=== PATIENT | male | born 1990 | race Caucasian/White ===

== ENCOUNTER 2017-05-20 13:17 | Emergency (ER) | payer BC ==
[~2017-05-20] VITALS: Ht 193 cm; Wt 85.0 kg
[~2017-05-20 13:17] MED LIST: CEPH500C3 PO
[2017-05-20 13:19] VITALS: BP 118/91; PULSE 96; RESP 18; TEMP 98.3; O2SAT 100
[2017-05-20] MEDS ORDERED: BUPR1SUB SL (13:36)
[2017-05-20] MEDS ORDERED: SODIUM CHLORIDE 0.9% FLUSH 10 ML FLUSH IV FLUSH PRN (13:45)
--- NOTE | 2017-05-20 13:46 | PD ---
HPI Chief Complaint: Musculoskeletal Complaint Time Seen by Provider: 13:25 Travel History International Travel<30 days: No Contact w/Intl Traveler<30days: No Traveled to known affect area: No History of Present Illness HPI 26-year-old male presents to emergency department for evaluation of right rib/ abdominal pain status post fall 1 hour ago. 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 Patient has a superficial 5 cm laceration to right anterior/lateral rib border. He reports pain with inspiration, movement, and a palpation of the area. Reports the pain is constant, sharp, severity 6 out of 10. Patient also reports right hand pain. He denies head injury or loss of consciousness. He denies headache, chest pain, shortness of breath, nausea or vomiting, numbness/weakness/tingling of the extremities. Patient has a history of IV drug abuse. Currently on Suboxone PFSH Past Medical History Medical History: Denies Significant Hx Anxiety: Yes (PANIC DISORDER) Depression: Yes Cancer: No Cardiovascular Problems: No Diabetes: No Diminished Hearing: No Endocrine: No Gastrointestinal Disorders: Yes (IBS) Genitourinary: No Immune Disorder: No Musculoskeletal: No Neurologic: Yes Psychiatric: Yes Reproductive: No Respiratory: No Immunizations Current: Yes Seizures: Yes Tetanus Vaccination: < 5 Years Influenza Vaccination: No PNEUMOCCOCAL Vaccine (Year): 2 Past Surgical History Surgical History: No Previous Surgery Abdominal Surgery: No Cardiac Surgery: No Ear Surgery: No Endocrine Surgery: No Eye Surgery: No Genitourinary Surgery: No Gynecologic Surgery: No Oral Surgery: No Thoracic Surgery: No Social History Alcohol Use: Yes Tobacco Use: Yes (1 ppd) Substance Use: Yes (IVD - DILAUDID - 120 MG - DAILY -, Heroin, now on suboxone) Allergies-Medications (Allergen,Severity, Reaction): Coded Allergies: No Known Allergies (Verified , 05/20/17) Reported Meds & Prescriptions Reported Meds & Active Scripts Active Ibuprofen 800 Mg Tab 800 Mg PO Q8H PRN Reported Zubsolv (Buprenorphine-Naloxone) 5.7-1.4 Mg Subl 1 Tab SL TID Review of Systems Except as stated in HPI: all other systems reviewed are Neg Physical Exam Narrative GENERAL: Alert, well-appearing young male holding onto the right side of his abdomen SKIN: Focused skin assessment warm/dry. Superficial 5 cm laceration right anterior lateral trunk. HEAD: Atraumatic. Normocephalic. EYES: Pupils equal and round. No scleral icterus. No injection or drainage. ENT: No nasal bleeding or discharge. Mucous membranes pink and moist. NECK: Trachea midline. No JVD. No cervical midline tenderness. CARDIOVASCULAR: Regular rate and rhythm. No murmur appreciated. RESPIRATORY: No accessory muscle use. Clear to auscultation. Breath sounds equal bilaterally. No wheezing, rhonchi, rales. CHEST: Right anterior lateral rib pain. No crepitus. No ecchymosis. GASTROINTESTINAL: Abdomen soft, point tenderness right upper quadrant, nondistended. Hepatic and splenic margins not palpable. MUSCULOSKELETAL: No obvious deformities. No clubbing. No cyanosis. No edema. Point tenderness within the right hand at the base of the thumb. NEUROLOGICAL: Awake and alert. No obvious cranial nerve deficits. Motor grossly within normal limits. Normal speech. PSYCHIATRIC: Appropriate mood and affect; insight and judgment normal. Data Data Last Documented VS Vital Signs Date Time Temp Pulse Resp B/P Pulse Ox O2 Delivery O2 Flow Rate FiO2 05/20/17 14:00 20 05/20/17 13:19 98.3 96 118/91 100 Orders Chest, Pa & Lat (05/20/17 ) Iv Access Insert/Monitor (05/20/17 13:39) Sodium Chloride 0.9% Flush (Ns Flush) (05/20/17 13:45) Ct Abd/Pel W Iv Contrast(Rout) (05/20/17 ) Hand, Complete ([id number]) (05/20/17 ) Iohexol 350 Inj (Omnipaque 350 Inj) (05/20/17 14:19) MDM Medical Decision Making Medical Screen Exam Complete: Yes Emergency Medical Condition: Yes Differential Diagnosis blunt trauma to the abdomen, rib contusion versus fracture, right hand contusion versus fracture, laceration Narrative Course 26-year-old male presents emergency department with chief complaint of right side pain status post fall from a standing position. Patient has a superficial 5 CM laceration to the right anterior lateral border of the ribs. He has tenderness in the right upper quadrant. Patient has pain/tenderness within the right hand. CT scan, x-rays pending. Wound repaired CT scan of the abdomen pelvis: Negative trauma scan. No acute injuries. Chest x-ray: Normal study .No pneumothorax, no rib fracture X-ray right hand: No acute fracture or dislocation. All diagnostic studies discussed with patient and family. Patient will be treated for superficial laceration, abdominal contusion, rib contusion, right hand contusion. Patient agrees to follow up with his primary doctor. Return precautions discussed. They verbalize understanding. Procedures Procedure Narrative LACERATION LOCATION: Right abdomen LENGTH: 5 cm NUMBER OF STITCHES/SALUD: Dermabond REPAIR: The area of the laceration was prepped with Betadine and sterilely draped. The wound is very superficial no active bleeding. The wound was copiously irrigated and explored without evidence of foreign body, tendon injury or neurovascular injury. The wound was closed using [-Dermabond]. A sterile dressing was applied. The patient was advised to keep the dressing clean and dry. Patient tolerated the procedure well. Diagnosis Primary Impression: Laceration of abdomen Qualified Code: S31.119A - Laceration of abdomen, initial encounter Additional Impression: Contusion Qualified Code: S30.1XXA - Contusion of abdominal wall, initial encounter Referrals: Primary Care Physician Additional Instructions: Follow-up with her primary care doctor for recheck in 2 days. Take [id number] Motrin or Tylenol as needed for pain. Return to the emergency department if he developed new or worsening symptoms such as severe abdominal pain, nausea, vomiting, chest pain, shortness of breath. Scripts Ibuprofen 800 Mg [id number] Mg PO Q8H PRN (Pain/Inflammation) #30 TAB Prov:Ratna Cason 05/20/17 Disposition: 01 DISCHARGE HOME Condition: Stable Ratna Cason May 20, 2017 13:46
--- NOTE | 2017-05-20 14:04 | RADRPT ---
EXAM DATE/TIME: 05/20/2017 13:56 [facility] COMPARISON: No previous studies available for comparison. INDICATIONS : Right hand pain after falling MEDICAL HISTORY : None. SURGICAL HISTORY : None. ENCOUNTER: Initial ACUITY: 1 day PAIN SCORE: 9/10 LOCATION: Right medial hand FINDINGS: Three view examination of the right hand demonstrates no soft tissue swelling, dislocation, or fractu re. The carpal bones appear intact. The interphalangeal and metacarpophalangeal joints are intact. Bony mineralization is normal. CONCLUSION: Negative for fracture or dislocation. Follow up in 7-10 days is suggested if symptoms persist. Grupo Singh MD FACR on May 20, 2017 at 14:01 Board Certified Radiologist. This report was verified electronically.
[2017-05-20] MEDS ORDERED: IOHEXOL 350 MG/ML 10 ML VIAL (for RAD DIAG) IV ONE (14:19)
--- NOTE | 2017-05-20 14:27 | RADRPT ---
EXAM DATE/TIME: 05/20/2017 13:57 [facility] COMPARISON: No previous studies available for comparison. INDICATIONS : Right sided pain after falling. IV CONTRAST: 90 cc Omnipaque 350 (iohexol) IV ORAL CONTRAST: No oral contrast ingested. RADIATION DOSE: 7.62 CTDIvol (mGy) MEDICAL HISTORY : Seizures. IBS SURGICAL HISTORY : None. ENCOUNTER: Initial ACUITY: 1 day PAIN SCALE: 7/10 LOCATION: Right upper quadrant ABDOMEN TECHNIQUE: Volumetric scanning of the abdomen and pelvis was performed. Using automated exposure control and ad justment of the mA and/or kV according to patient size, radiation dose was kept as low as reasonably achievable to obtain optimal diagnostic quality images. DICOM format image data is available electro nically for review and comparison. FINDINGS: LOWER LUNGS: The visualized lower lungs are clear. LIVER: Homogeneous density without lesion. There is no dilation of the biliary tree. No calcified gallston es. SPLEEN: Normal size without lesion. PANCREAS: Within normal limits. KIDNEYS: Normal in size and shape. There is no mass, stone or hydronephrosis. ADRENAL GLANDS: Within normal limits. VASCULAR: There is no aortic aneurysm. BOWEL/MESENTERY: The stomach, small bowel, and colon demonstrate no acute abnormality. There is no free intraperitone al air or fluid. ABDOMINAL WALL: Within normal limits. RETROPERITONEUM: There is no lymphadenopathy. BLADDER: No wall thickening or mass. REPRODUCTIVE: Within normal limits. INGUINAL: There is no lymphadenopathy or hernia. MUSCULOSKELETAL: Within normal limits for patient age. CONCLUSION: Negative for an acute traumatic injury.. Grupo Singh MD FACR on May 20, 2017 at 14:23 Board Certified Radiologist. This report was verified electronically.
--- NOTE | 2017-05-20 14:30 | RADRPT ---
EXAM DATE/TIME: 05/20/2017 13:48 [facility] COMPARISON: CT ABDOMEN & PELVIS W CONTRAST, May 20, 2017, 13:57. INDICATIONS : Right side rib pain after falling MEDICAL HISTORY : None. SURGICAL HISTORY : None. ENCOUNTER: Initial ACUITY: 1 day PAIN SCORE: 10/10 LOCATION: Right anterior lower ribs FINDINGS: PA and lateral views of the chest demonstrate a normal-sized cardiac silhouette. There is no effusion , consolidation, or pneumothorax. The bones and soft tissues demonstrate no acute abnormality. No rib fracture is visualized. CONCLUSION: No acute cardiopulmonary abnormality is identified. No rib fracture is seen. Agustin Sanchez MD on May 20, 2017 at 14:26 Board Certified Radiologist. This report was verified electronically.
[2017-05-20] MEDS ORDERED: IBUP800T23 PO (14:54)
== END 2017-05-20 15:23 | disposition home or self-care (01) ==
LOC: PHEFT 13:17
DX: S31.119A Laceration without foreign body of abdominal wall, unspecified quadrant without penetration into peritoneal cavity, initial encounter (principal); S30.1XXA Contusion of abdominal wall, initial encounter; W18.00XA Striking against unspecified object with subsequent fall, initial encounter
CPT/HCPCS: 12002; 71020; 73130; 74177; 99284; Q9967

== ENCOUNTER 2017-07-20 00:28 | Emergency (ER) | payer BC, OTHER ==
[~2017-07-20 00:28] MED LIST changes: +BUPR1SUB SL; -CEPH500C3 PO; +IBUP800T23 PO
[2017-07-20 00:58] VITALS: BP 136/87; PULSE 78; RESP 16; TEMP 98.7; O2SAT 99
--- NOTE | 2017-07-20 02:24 | PD ---
HPI Chief Complaint: Psychiatric Symptoms Time Seen by Provider: 02:13 Travel History International Travel<30 days: No Contact w/Intl Traveler<30days: No Traveled to known affect area: No History of Present Illness HPI 27 years old male was [place] acted and brought in for evaluation. Patient reportedly was making suicidal threats to his mother. Patient states that he did that to get his mother's attention and money. Patient states that he doesn' t mean to do any harm to himself. Patient denies any alcohol or drug abuse. Patient denies any medical problem. Patient denies any headache. Patient denies any chest pain or shortness of breath. Patient denies abdominal pain. Patient denies any injury. PFSH Past Medical History Anxiety: Yes (PANIC DISORDER) Depression: Yes Cancer: No Cardiovascular Problems: No Diabetes: No Diminished Hearing: No Endocrine: No Gastrointestinal Disorders: Yes (IBS) Genitourinary: No Immune Disorder: No Musculoskeletal: No Neurologic: Yes Psychiatric: Yes Reproductive: No Respiratory: No Immunizations Current: Yes Seizures: Yes PNEUMOCCOCAL Vaccine (Year): 2 Past Surgical History Abdominal Surgery: No Cardiac Surgery: No Ear Surgery: No Endocrine Surgery: No Eye Surgery: No Genitourinary Surgery: No Gynecologic Surgery: No Oral Surgery: No Thoracic Surgery: No Social History Alcohol Use: Yes Tobacco Use: Yes (1 ppd) Substance Use: Yes (IVD DILAUDID 16 MG DAILY ) Allergies-Medications (Allergen,Severity, Reaction): Coded Allergies: No Known Allergies (Verified , 07/20/17) Reported Meds & Prescriptions Reported Meds & Active Scripts Active Ibuprofen 800 Mg Tab 800 Mg PO Q8H PRN Reported Zubsolv (Buprenorphine-Naloxone) 5.7-1.4 Mg Subl 1 Tab SL TID Review of Systems General / Constitutional: No: Fever Eyes: No: Visual changes HENT: No: Headaches Cardiovascular: No: Chest Pain or Discomfort Respiratory: No: Shortness of Breath Gastrointestinal: No: Abdominal Pain Genitourinary: No: Dysuria Musculoskeletal: No: Pain Skin: No Rash Neurologic: No: Weakness Psychiatric: No: Depression Endocrine: No: Polydipsia Hematologic/Lymphatic: No: Easy Bruising Physical Exam Narrative GENERAL: Well-nourished, well-developed patient. SKIN: Focused skin assessment warm/dry. HEAD: Normocephalic. EYES: No scleral icterus. No injection or drainage. NECK: Supple, trachea midline. No JVD or lymphadenopathy. CARDIOVASCULAR: Regular rate and rhythm without murmurs, gallops, or rubs. RESPIRATORY: Breath sounds equal bilaterally. No accessory muscle use. GASTROINTESTINAL: Abdomen soft, non-tender, nondistended. MUSCULOSKELETAL: No cyanosis, or edema. BACK: Nontender without obvious deformity. No CVA tenderness. Neurologic exam normal. Data Data Last Documented VS Vital Signs Date Time Temp Pulse Resp B/P (MAP) Pulse Ox O2 Delivery O2 Flow Rate FiO2 07/20/17 00:58 98.7 78 16 136/87 (103) 99 Orders Orders Complete Blood Count With Diff (07/20/17 02:17) Comprehensive Metabolic Panel (07/20/17 02:17) Psych Screen (07/20/17 02:17) Drug Screen, Random Urine (07/20/17 02:17) MDM Medical Decision Making Medical Screen Exam Complete: Yes Emergency Medical Condition: Yes Differential Diagnosis Differential diagnosis including adjustment disorder, depression, suicidal. Narrative Course 27 years old male was [place] acted for suicidal threat. Patient is medically cleared for psychiatric evaluation and disposition. Harvey Romano MD Jul 20, 2017 02:24
[2017-07-20 02:48] LABS: BASOPHIL # 0.1 TH/MM3 (0-0.2); BASOPHIL % 0.7 % (0.0-2.0); EOSINOPHIL # 0.7 TH/MM3 (0-0.4); EOSINOPHIL % 7.5 % (0.0-4.0); HEMATOCRIT 48.4 % (39.0-51.0); HEMO FLAGS DIFF FINAL; LYMPH % 26.4 % (9.0-44.0); LYMPHOCYTE # 2.4 TH/MM3 (1.0-4.8); MEAN CELL VOLUME 89.8 FL (80.0-100.0); MEAN CORPUSCULAR HEMOGLOBIN 29.3 PG (27.0-34.0); MEAN CORPUSCULAR HGB CONC 32.7 % (32.0-36.0); MONO % 10.1 % (0.0-8.0); NEUT % 55.3 % (16.0-70.0); PLATELET COUNT 267 TH/MM3 (150-450); WHITE BLOOD COUNT 9.1 TH/MM3 (4.0-11.0)
[2017-07-20 03:01] LABS: ALT (GPT) 19 U/L (12-78); ANION GAP 11 MEQ/L (5-15); AST (GOT) 20 U/L (15-37); BICARBONATE 24.8 MEQ/L (21.0-32.0); BLOOD UREA NITROGEN 9 MG/DL (7-18); CHLORIDE 105 MEQ/L (98-107); GLOMERULAR FILTRATION RATE 84 ML/MIN (>89); POTASSIUM 3.7 MEQ/L (3.5-5.1); SODIUM (NA) 141 MEQ/L (136-145)
[2017-07-20 03:03] LABS: ALKALINE PHOSPHATASE 91 U/L (45-117); TOTAL BILIRUBIN ADULT 0.4 MG/DL (0.2-1.0)
[2017-07-20 06:45] VITALS: BP 110/73; PULSE 60; RESP 18; O2SAT 99
[2017-07-20 13:29] VITALS: BP 127/71; PULSE 66; RESP 18; O2SAT 99
--- NOTE | 2017-07-20 14:29 | PD ---
History of Present Illness Chief Complaint: Psychiatric Symptoms Time Seen by Provider: 13:30 Travel History International Travel<30 Days: No Contact w/Intl Traveler<30days: No Known affected area: No Legal Status Legal Status: [place] Act History of Present Illness: 27-year-old male [place] acted for suicidal threats. Patient admits to a multiyear history of dialogue it abuse. He also admits to telling his mother that he was suicidal in order to get money from her. He is currently calm, pleasant, smiling and cooperative. He has only a few weeks left under his parent's insurance to get treatment for his drug abuse. He is stating that he wants this treatment and he knows he must act quickly. He is denying any suicidal or homicidal ideation, plan or intent at this time. He has no psychotic symptoms and his cognition are intact. He is verbally carina for safety. PFSH Past Medical History Medical History: Denies Significant Hx Anxiety: Yes (PANIC DISORDER) Depression: Yes Cancer: No Cardiovascular Problems: No Diabetes: No Diminished Hearing: No Endocrine: No Gastrointestinal Disorders: Yes (IBS) Genitourinary: No Immune Disorder: No Musculoskeletal: No Neurologic: Yes Psychiatric: Yes Reproductive: No Respiratory: No Immunizations Current: Yes Seizures: Yes PNEUMOCCOCAL Vaccine (Year): 2 Past Surgical History Abdominal Surgery: No Cardiac Surgery: No Ear Surgery: No Endocrine Surgery: No Eye Surgery: No Genitourinary Surgery: No Gynecologic Surgery: No Oral Surgery: No Thoracic Surgery: No Psychiatric History Psychiatric History Hx Psychiatric Treatment: [facility] [place] nov 13, 2012 History of Inpatient Treatment: Yes Social History Hx Alcohol Use: Yes Hx Tobacco Use: Yes (1 ppd) Hx Substance Use: Yes (IVD DILAUDID 16 MG DAILY ) Substance Use Type: Synth Opiates-Pain Pills Other Substances Used: i.v dilauded Hx of Substance Use Treatment: No Allergies-Medications (Allergen,Severity, Reaction): Coded Allergies: No Known Allergies (Verified , 07/20/17) Reported Meds & Prescriptions Reported Meds & Active Scripts Active Ibuprofen 800 Mg Tab 800 Mg PO Q8H PRN Reported Zubsolv (Buprenorphine-Naloxone) 5.7-1.4 Mg Subl 1 Tab SL TID Review of Systems Except as stated in HPI: all other systems reviewed are Neg Exam Alert: Yes [place]: Person, Place, Date, Situation Mood: Calm Affect: Appropriate, Euthymic Speech: Clear, Logical Eye Contact: Normal Memory Intact: Immediate, Recent, Remote Insight/Judgement Adequate MDM Medical Decision Making Medical Record Reviewed: Yes Assessment/Plan Patient was interviewed, chart reviewed and case discussed with nurse. Patient is verbally carina for safety and acknowledges his predominant problem is opiate abuse. Patient is willing to obtain treatment for this area this physician does not feel the patient qualifies for [place] act or involuntary psychiatric hospitalization. He is therefore being referred for substance abuse treatment and rehabilitation. Orders Orders Complete Blood Count With Diff (07/20/17 02:17) Comprehensive Metabolic Panel (07/20/17 02:17) Psych Screen (07/20/17 02:17) Drug Screen, Random Urine (07/20/17 02:17) Diet Regular Basic (07/20/17 Lunch) Results Vital Signs Date Time Temp Pulse Resp B/P (MAP) Pulse Ox O2 Delivery O2 Flow Rate FiO2 07/20/17 13:29 66 18 127/71 (89) 99 Room Air 07/20/17 06:45 60 18 110/73 (85) 99 Room Air 07/20/17 00:58 98.7 78 16 136/87 (103) 99 Laboratory Tests Test 07/20/17 02:30 White Blood Count 9.1 Red Blood Count 5.40 Hemoglobin 15.8 Hematocrit 48.4 Mean Corpuscular Volume 89.8 Mean Corpuscular Hemoglobin 29.3 Mean Corpuscular Hemoglobin Concent 32.7 Red Cell Distribution Width 14.0 Platelet Count 267 Mean Platelet Volume 7.5 Neutrophils (%) (Auto) 55.3 Lymphocytes (%) (Auto) 26.4 Monocytes (%) (Auto) 10.1 Eosinophils (%) (Auto) 7.5 Basophils (%) (Auto) 0.7 Neutrophils # (Auto) 5.0 Lymphocytes # (Auto) 2.4 Monocytes # (Auto) 0.9 Eosinophils # (Auto) 0.7 Basophils # (Auto) 0.1 CBC Comment DIFF FINAL Differential Comment Blood Urea Nitrogen 9 Creatinine 1.06 Random Glucose 72 Total Protein 8.6 Albumin 4.4 Calcium Level 9.2 Alkaline Phosphatase 91 Aspartate Amino Transf (AST/SGOT) 20 Alanine Aminotransferase (ALT/SGPT) 19 Total Bilirubin 0.4 Sodium Level 141 Potassium Level 3.7 Chloride Level 105 Carbon Dioxide Level 24.8 Anion Gap 11 Estimat Glomerular Filtration Rate 84 Urine Opiates Screen POS Urine Barbiturates Screen NEG Urine Amphetamines Screen NEG Urine Benzodiazepines Screen NEG Urine Cocaine Screen POS Urine Cannabinoids Screen NEG Diagnosis Primary Impression: Adjustment disorder with mixed disturbance of emotions and conduct Additional Impression: Opiate abuse, episodic Problem Qualifiers Eddie Reyes MD Jul 20, 2017 14:29
--- NOTE | 2017-07-20 14:52 | PD ---
Data Data Last Documented VS Vital Signs Date Time Temp Pulse Resp B/P (MAP) Pulse Ox O2 Delivery O2 Flow Rate FiO2 07/20/17 14:34 07/20/17 13:29 66 18 99 Room Air 07/20/17 00:58 98.7 Orders Orders Complete Blood Count With Diff (07/20/17 02:17) Comprehensive Metabolic Panel (07/20/17 02:17) Psych Screen (07/20/17 02:17) Drug Screen, Random Urine (07/20/17 02:17) Diet Regular Basic (07/20/17 Lunch) Labs Laboratory Tests Test 07/20/17 02:30 White Blood Count 9.1 TH/MM3 Red Blood Count 5.40 MIL/MM3 Hemoglobin 15.8 GM/DL Hematocrit 48.4 % Mean Corpuscular Volume 89.8 FL Mean Corpuscular Hemoglobin 29.3 PG Mean Corpuscular Hemoglobin Concent 32.7 % Red Cell Distribution Width 14.0 % Platelet Count 267 TH/MM3 Mean Platelet Volume 7.5 FL Neutrophils (%) (Auto) 55.3 % Lymphocytes (%) (Auto) 26.4 % Monocytes (%) (Auto) 10.1 % Eosinophils (%) (Auto) 7.5 % Basophils (%) (Auto) 0.7 % Neutrophils # (Auto) 5.0 TH/MM3 Lymphocytes # (Auto) 2.4 TH/MM3 Monocytes # (Auto) 0.9 TH/MM3 Eosinophils # (Auto) 0.7 TH/MM3 Basophils # (Auto) 0.1 TH/MM3 CBC Comment DIFF FINAL Differential Comment Blood Urea Nitrogen 9 MG/DL Creatinine 1.06 MG/DL Random Glucose 72 MG/DL Total Protein 8.6 GM/DL Albumin 4.4 GM/DL Calcium Level 9.2 MG/DL Alkaline Phosphatase 91 U/L Aspartate Amino Transf (AST/SGOT) 20 U/L Alanine Aminotransferase (ALT/SGPT) 19 U/L Total Bilirubin 0.4 MG/DL Sodium Level 141 MEQ/L Potassium Level 3.7 MEQ/L Chloride Level 105 MEQ/L Carbon Dioxide Level 24.8 MEQ/L Anion Gap 11 MEQ/L Estimat Glomerular Filtration Rate 84 ML/MIN Urine Opiates Screen POS Urine Barbiturates Screen NEG Urine Amphetamines Screen NEG Urine Benzodiazepines Screen NEG Urine Cocaine Screen POS Urine Cannabinoids Screen NEG MDM Supervised Visit with [facility]: No Narrative Course I saw this patient prior to discharge. He was coming here primarily for detox from opiates. He feels comfortable with the discharge plan and he feels safe. Diagnosis Primary Impression: Adjustment disorder with mixed disturbance of emotions and conduct Additional Impression: Opiate abuse, episodic Patient Instructions: General Instructions, Mood Disorders (ED) Departure Forms: Tests/Procedures Additional Instruction: Follow up with Shakira Dominique in regards to psychiatric or substance related issues at: [address] [place] [address] Med/Other Pt SpecificInfo: No Change to Meds Disposition: 01 DISCHARGE HOME Condition: Stable Shanita Grayson MD Jul 20, 2017 14:52
== END 2017-07-20 14:45 | disposition home or self-care (01) ==
LOC: NEPC 00:28 → NEPD 14:45
DX: F43.25 Adjustment disorder with mixed disturbance of emotions and conduct (principal); F11.10 Opioid abuse, uncomplicated; F17.200 Nicotine dependence, unspecified, uncomplicated; Z79.899 Other long term (current) drug therapy; Z86.59 Personal history of other mental and behavioral disorders; Z87.19 Personal history of other diseases of the digestive system; Z86.69 Personal history of other diseases of the nervous system and sense organs
CPT/HCPCS: 80053; 80307; 85025; 99283

== ENCOUNTER 2018-05-14 06:40 | Emergency (ER) | payer BC, OTHER ==
[~2018-05-14] VITALS: Ht 193 cm; Wt 77.0 kg
[~2018-05-14 06:40] MED LIST changes: +IBUP1TAB7 PO; -IBUP800T23 PO
[2018-05-14 06:45] VITALS: BP 131/65; PULSE 72; RESP 18; TEMP 97.5; O2SAT 98
--- NOTE | 2018-05-14 07:38 | PD ---
HPI Chief Complaint: Abdominal Pain Time Seen by Provider: 07:12 Travel History International Travel<30 days: No Contact w/Intl Traveler<30days: No Traveled to known affect area: No History of Present Illness HPI This patient complains of abdominal pain. He has nausea and vomited total of 4 times. Pain started at 3 AM this morning. Duration 4 hours. Severity is moderate. No diarrhea or fever. No lower quadrant pains. No history of abdominal surgery. He does have history of irritable bowel syndrome. Patient is a daily injector of Dilaudid. No history of bacteremia or endocarditis. He has no chest symptoms. No alleviating factors. No exacerbating factors. PFSH Past Medical History Anxiety: Yes (PANIC DISORDER) Depression: Yes Cancer: No Cardiovascular Problems: No Diabetes: No Diminished Hearing: No Endocrine: No Gastrointestinal Disorders: Yes (IBS) Genitourinary: No Immune Disorder: No Musculoskeletal: No Neurologic: Yes Psychiatric: Yes Reproductive: No Respiratory: No Immunizations Current: Yes Seizures: Yes PNEUMOCCOCAL Vaccine (Year): 2 Past Surgical History Surgical History: No Previous Surgery Abdominal Surgery: No Cardiac Surgery: No Ear Surgery: No Endocrine Surgery: No Eye Surgery: No Genitourinary Surgery: No Gynecologic Surgery: No Oral Surgery: No Thoracic Surgery: No Social History Alcohol Use: No Tobacco Use: Yes (1 ppd) Substance Use: Yes (IVD DILAUDID approx 12 hours ago) Allergies-Medications (Allergen,Severity, Reaction): Coded Allergies: No Known Allergies (Verified Adverse Reaction, Unknown, 05/14/18) Reported Meds & Prescriptions Reported Meds & Active Scripts Active No Active Prescriptions or Reported Medications Review of Systems General / Constitutional: No: Fever Eyes: No: Visual changes HENT: No: Headaches Cardiovascular: No: Chest Pain or Discomfort Respiratory: No: Shortness of Breath Gastrointestinal: Positive: Nausea, Vomiting, Abdominal Pain Genitourinary: No: Dysuria Musculoskeletal: No: Pain Skin: No Rash Neurologic: No: Weakness Psychiatric: Positive: Substance Abuse, No: Depression Endocrine: No: Polydipsia Hematologic/Lymphatic: No: Easy Bruising Physical Exam Narrative GENERAL: Well-nourished, well-developed patient in no apparent distress. SKIN: Focused skin assessment reveals no rash and nodules. Skin is Warm and dry. HEAD: Atraumatic. Normocephalic. EYES: Pupils equal and round. No scleral icterus. No injection or drainage. ENT: No nasal bleeding or discharge. Mucous membranes pink and moist. NECK: Trachea midline. No JVD. CARDIOVASCULAR: Regular rate and rhythm. No murmur appreciated. RESPIRATORY: No accessory muscle use. Clear to auscultation. Breath sounds equal bilaterally. GASTROINTESTINAL: Abdomen soft, minimal epigastric tenderness without rebound or guarding , nondistended. Hepatic and splenic margins not palpable. MUSCULOSKELETAL: No obvious deformities. No clubbing. No cyanosis. No edema. NEUROLOGICAL: Awake and alert. No obvious cranial nerve deficits. Motor grossly within normal limits. Normal speech. PSYCHIATRIC: Appropriate mood and affect; insight and judgment poor . Data Data Last Documented VS Vital Signs Date Time Temp Pulse Resp B/P (MAP) Pulse Ox O2 Delivery O2 Flow Rate FiO2 05/14/18 06:45 97.5 72 18 131/65 (87) 98 Orders Orders Complete Blood Count With Diff (05/14/18 07:34) Comprehensive Metabolic Panel (05/14/18 07:34) Lipase (05/14/18 07:34) Ct Abd/Pel W Iv Contrast(Rout) (05/14/18 07:34) Iv Access Insert/Monitor (05/14/18 07:34) Sodium Chloride 0.9% Flush (Ns Flush) (05/14/18 07:45) Ondansetron Odt (Zofran Odt) (05/14/18 07:45) Iohexol 350 Inj (Omnipaque 350 Inj) (05/14/18 08:52) Blood Culture (05/14/18 08:58) Labs Laboratory Tests Test 05/14/18 07:30 White Blood Count 6.6 TH/MM3 Red Blood Count 5.38 MIL/MM3 Hemoglobin 15.9 GM/DL Hematocrit 47.8 % Mean Corpuscular Volume 89.0 FL Mean Corpuscular Hemoglobin 29.6 PG Mean Corpuscular Hemoglobin Concent 33.3 % Red Cell Distribution Width 15.5 % Platelet Count 225 TH/MM3 Mean Platelet Volume 7.8 FL Neutrophils (%) (Auto) 51.4 % Lymphocytes (%) (Auto) 31.7 % Monocytes (%) (Auto) 9.0 % Eosinophils (%) (Auto) 7.0 % Basophils (%) (Auto) 0.9 % Neutrophils # (Auto) 3.4 TH/MM3 Lymphocytes # (Auto) 2.1 TH/MM3 Monocytes # (Auto) 0.6 TH/MM3 Eosinophils # (Auto) 0.5 TH/MM3 Basophils # (Auto) 0.1 TH/MM3 CBC Comment DIFF FINAL Differential Comment Blood Urea Nitrogen 15 MG/DL Creatinine 1.03 MG/DL Random Glucose 112 MG/DL Total Protein 9.0 GM/DL Albumin 4.5 GM/DL Calcium Level 9.1 MG/DL Alkaline Phosphatase 172 U/L Aspartate Amino Transf (AST/SGOT) 220 U/L Alanine Aminotransferase (ALT/SGPT) 641 U/L Total Bilirubin 0.6 MG/DL Sodium Level 141 MEQ/L Potassium Level 4.1 MEQ/L Chloride Level 106 MEQ/L Carbon Dioxide Level 26.8 MEQ/L Anion Gap 8 MEQ/L Estimat Glomerular Filtration Rate 87 ML/MIN Lipase 160 U/L MDM Medical Decision Making Medical Screen Exam Complete: Yes Emergency Medical Condition: Yes Medical Record Reviewed: Yes Differential Diagnosis Differential diagnosis includes pancreatitis, biliary colic, hepatitis, GERD, peptic ulcer disease. Narrative Course I have reviewed the patient's electronic medical record. IV placed and labs sent CT of abdomen pelvis does not show anything emergent. There is a section of small intestine with borderline dilation. No obstruction. Zofran given CBC and metabolic studies are normal. LFTs are elevated. I sent 2 blood culture sets. This is just to be thorough given his history of IV drug abuse. He has no leukocytosis or fever or clinical suspicion of sepsis or bacteremia. No endocarditis suspicion. He has no chest symptoms. He has been sleeping for hours. He feels fine he has no pain. He is not vomited one time. Stable for outpatient follow-up I wrote some as needed Zofran just in case He should follow-up with his primary physician to discuss his increased LFTs and decide what further workup may be needed Diagnosis Primary Impression: Abdominal pain Qualified Codes: R10.13 - Epigastric pain Additional Impressions: Emesis Qualified Codes: R11.2 - Nausea with vomiting, unspecified IV drug abuse Liver function abnormality Additional Instructions: Follow-up with primary care to discuss your liver function abnormality and intestinal situation Recommend [facility] drug rehab services I have recommended clear liquids for 24 hours, then gradually advance as tolerated. Med/Other Pt SpecificInfo: Prescription(s) given Scripts No Active Prescriptions or Reported Meds Disposition: 01 DISCHARGE HOME Condition: Nir Lynn MD May 14, 2018 07:38
[2018-05-14] MEDS ORDERED: ONDANSETRON ODT 4 MG TAB PO ONE (07:45)
[2018-05-14] MEDS ORDERED: SODIUM CHLORIDE 0.9% FLUSH 10 ML FLUSH IV FLUSH PRN (07:45)
[2018-05-14 07:54] LABS: AUTOMATED NEUTROPHIL # 3.4 TH/MM3 (1.8-7.7); BASOPHIL # 0.1 TH/MM3 (0-0.2); BASOPHIL % 0.9 % (0.0-2.0); EOSINOPHIL # 0.5 TH/MM3 (0-0.4); HEMATOCRIT 47.8 % (39.0-51.0); HEMOGLOBIN 15.9 GM/DL (13.0-17.0); LYMPH % 31.7 % (9.0-44.0); LYMPHOCYTE # 2.1 TH/MM3 (1.0-4.8); MEAN CORPUSCULAR HEMOGLOBIN 29.6 PG (27.0-34.0); MEAN CORPUSCULAR HGB CONC 33.3 % (32.0-36.0); MEAN PLATELET VOLUME 7.8 FL (7.0-11.0); MONOCYTE # 0.6 TH/MM3 (0-0.9); NEUT % 51.4 % (16.0-70.0); PLATELET COUNT 225 TH/MM3 (150-450); RED BLOOD COUNT 5.38 MIL/MM3 (4.50-5.90); RED CELL DISTRIBUTION WIDTH 15.5 % (11.6-17.2); WHITE BLOOD COUNT 6.6 TH/MM3 (4.0-11.0)
[2018-05-14 08:11] LABS: ALBUMIN 4.5 GM/DL (3.4-5.0); AST (GOT) 220 U/L (15-37); BICARBONATE 26.8 MEQ/L (21.0-32.0); BLOOD UREA NITROGEN 15 MG/DL (7-18); CALCIUM 9.1 MG/DL (8.5-10.1); CHLORIDE 106 MEQ/L (98-107); CREATININE 1.03 MG/DL (0.60-1.30); GLOMERULAR FILTRATION RATE 87 ML/MIN (>89); GLUCOSE,RANDOM 112 MG/DL (74-106); SODIUM (NA) 141 MEQ/L (136-145)
[2018-05-14 08:15] LABS: ALKALINE PHOSPHATASE 172 U/L (45-117); ALT (GPT) 641 U/L (12-78); TOTAL BILIRUBIN ADULT 0.6 MG/DL (0.2-1.0)
[2018-05-14] MEDS ORDERED: IOHEXOL 350 MG/ML 10 ML VIAL (for RAD DIAG) IVCONTRAST ONE (08:52)
--- NOTE | 2018-05-14 09:15 | RADRPT ---
EXAM DATE: 05/14/2018 8:50 AM EDT AGE/SEX: 27 years / Male INDICATIONS: Abdominal pain. Nausea and vomiting. CLINICAL DATA: This is the patient's initial encounter. Patient reports that signs and symptoms have been present for 1 day and indicates a pain score of 4/10. MEDICAL/SURGICAL HISTORY: Irritable bowel syndrome. Seizure. None. ORAL CONTRAST: No oral contrast ingested. RADIATION DOSE: 6.64 CTDI (mGy) COMPARISON: [facility], CT ABDOMEN & PELVIS W CONTRAST, 05/20/2017. . TECHNIQUE: Multiple contiguous axial images were obtained through the abdomen and pelvis following b olus infusion of 93 ml Omnipaque 350 (iohexol) nonionic water-soluble contrast as a single exam dos e. No oral contrast ingested. Using automated exposure control and adjustment of the mA and/or kV ac cording to patient size, radiation dose was kept as low as reasonably achievable to obtain optimal di agnostic quality images. DICOM format image data is available electronically for review and comparis on. FINDINGS: Lower Lungs: The visualized lower lungs are clear. Liver: The liver demonstrates diffuse decreased attenuation. No focal hepatic lesions are seen. The g allbladder is unremarkable. Spleen: Spleen appears mildly enlarged measuring 13.4 cm in length. No focal splenic lesions are see n. Pancreas: Unremarkable without mass or calcification. Kidneys: Normal in size and shape. No evidence of mass or hydronephrosis. Adrenal Glands: Unremarkable. Aorta: The aorta and proximal iliac vessels are grossly unremarkable without aneurysmal dilation. Bowel/Mesentery: Significantly thickened bowel is not seen. There is a moderate amount stool seen th roughout the colon. The small bowel is borderline distended measuring up to 3 cm. This pattern is non specific. The appendix is not seen. Significant inflammatory change in the mesentery is not seen alth ough the patient has a paucity of intra-abdominal peritoneal fat. The stomach is not distended. Abdominal Wall: Intact. Retroperitoneum: No evidence of adenopathy in the retrocrural, para-aortic, or deep pelvic regions. Bladder: Contours are smooth. Reproductive Organs: No abnormal masses or calcifications seen. Inguinal: The inguinal region is unremarkable without evidence of adenopathy. Bony Structures: Unremarkable. CONCLUSION: 1. No definite acute abnormality seen. The small bowel appears borderline distended. This is nonspec ific. There is moderate amount stool seen through out a nondistended colon. 2. Hepatic steatosis. 3. Mild splenomegaly. Electronically signed by: Agustin Doherty MD 05/14/2018 9:14 AM EDT
[2018-05-14] MEDS ORDERED: ZOFR4TAB PO (14:23)
[2018-05-14 14:30] VITALS: BP 110/57
== END 2018-05-14 14:34 | disposition home or self-care (01) ==
LOC: NEPC 06:40
DX: R10.13 Epigastric pain (principal); R11.2 Nausea with vomiting, unspecified; F19.10 Other psychoactive substance abuse, uncomplicated; R79.89 Other specified abnormal findings of blood chemistry; K58.9 Irritable bowel syndrome, unspecified; F41.9 Anxiety disorder, unspecified; F32.9 Major depressive disorder, single episode, unspecified; F17.200 Nicotine dependence, unspecified, uncomplicated; F11.90 Opioid use, unspecified, uncomplicated
CPT/HCPCS: 74177; 80053; 83690; 85025; 87040; 99284; Q9967